=== PATIENT | female | born 1955 | race Caucasian/White ===

== ENCOUNTER 2019-02-28 07:10 | Day surgery (SDC) | payer MEDICAID ==
[2019-02-24 14:40] LABS: BASOPHILS % (AUTO) 0.8 % (0.0-2.0); EOSINOPHILS # (AUTO) 0.2 K/uL (0-0.4); EOSINOPHILS % (AUTO) 3.3 % (0.0-4.0); HEMATOCRIT 36.9 % (36-48); HEMOGLOBIN 12.1 g/dL (12.0-16.0); LYMPHOCYTES # (AUTO) 1.6 K/uL (2.5-16.5); LYMPHOCYTES % (AUTO) 28.3 % (20.5-51.1); MEAN CORPUSCULAR HEMOGLOBIN 29 pg (27-31); MEAN CORPUSCULAR HGB CONC 33 g/dL (33-37); MEAN CORPUSCULAR VOLUME 87.6 fL (80-94); MONOCYTES # (AUTO) 0.4 K/uL (0.8-1.0); MONOCYTES % (AUTO) 6.4 % (1.7-9.3); NEUTROPHILS # (AUTO) 3.5 K/uL (1.8-7.7); NEUTROPHILS % (AUTO) 61.2 % (42.2-75.2); PLATELET COUNT (AUTO) 262 K/uL (140-450); RED BLOOD CELL COUNT(AUTO) 4.21 MIL/uL (4.20-5.40); RED CELL DISTRIBUTION WIDTH 17.1 % (11.6-13.7); WHITE BLOOD COUNT (AUTO) 5.7 K/uL (4.8-10.8)
[2019-02-24 15:31] LABS: ALBUMIN 3.8 g/dL (3.4-5.0); CREATININE 0.5 mg/dL (0.6-1.3); TOTAL BILIRUBIN 0.5 mg/dL (0.0-1.0)
[~2019-02-28] VITALS: Ht 162.6 cm; Wt 77.1 kg
[2019-02-28] MEDS ORDERED: BUPIVACAINE-MPF/EPI 0.25% 30 ML VIAL INJ ONE (08:48)
[2019-02-28] MEDS ORDERED: BUPIVACAINE-MPF 0.25% 30 ML VIAL INJ ONE (08:49)
[2019-02-28] MEDS ORDERED: RIVA20TA4 PO (08:49)
[2019-02-28] MEDS ORDERED: METO25TA PO (08:49)
[2019-02-28] MEDS ORDERED: KETOROLAC 30 MG/ML VIAL ONE (09:00)
[2019-02-28] MEDS ORDERED: SEVOFLURANE 250 ML BTL INH ONE (09:00)
[2019-02-28] MEDS ORDERED: ONDANSETRON 4 MG/2 ML VIAL ONE (09:00)
[2019-02-28] MEDS ORDERED: PROPOFOL 200 MG/20 ML VIAL IV ONE (09:00)
[2019-02-28] MEDS ORDERED: DEXAMETHASONE 4 MG/ML VIAL ONE (09:00)
[2019-02-28] MEDS ORDERED: MIDAZOLAM 2 MG/2 ML VIAL ONE (09:16)
[2019-02-28] MEDS ORDERED: fentaNYL 0.05 MG/ML VIAL ONE (09:16)
[2019-02-28] MEDS ORDERED: LACTATED RINGERS 1,000 ML IV SCH (09:59)
[2019-02-28] MEDS ORDERED: MEPERIDINE 25 MG/ML SYR IVP PRN (10:00)
[2019-02-28] MEDS ORDERED: diphenhydrAMINE 50 MG/ML VIAL IVP PRN (10:00)
[2019-02-28] MEDS ORDERED: HYDROmorphone 1 MG/ML AMP IVP PRN (10:00)
[2019-02-28] MEDS ORDERED: ONDANSETRON 4 MG/2 ML VIAL IVP PRN (10:00)
== END 2019-02-28 12:28 | disposition home or self-care (01) ==
LOC: MDS 07:10 → MMU 07:11 → MDS 12:28
PROVIDERS: ATTEND Surgery
DX: N60.32 Fibrosclerosis of left breast (principal); I48.91 Unspecified atrial fibrillation; I10 Essential (primary) hypertension; Z87.891 Personal history of nicotine dependence; Z79.01 Long term (current) use of anticoagulants; Z79.899 Other long term (current) drug therapy; Z90.721 Acquired absence of ovaries, unilateral; Z98.890 Other specified postprocedural states; Z85.3 Personal history of malignant neoplasm of breast
CPT/HCPCS: 19120; 36415; 36590; 71045; 80053; 85025; 88300; 88305; J0690; J1100; J1885; J2250; J2405; J2704; J3010; J3490; J7060; J7120